=== PATIENT | male | born 1970 | race Two or more races ===

== ENCOUNTER 2017-08-08 07:49 | Outpatient (CLI) | payer OTHER ==
[~2017-08-08 07:49] MED LIST: BENADRYL50 MG; CIPRO750 MG; IBUPROFEN800 MG PO; MEDROL4 MG; ORPH100T PO; ZYRTEC10 MG
== END 2017-08-08 08:22 | disposition home or self-care (01) ==
LOC: RAD 07:49 → MAMO-SONO 08:15 → RAD 08:22
DX: M75.41 Impingement syndrome of right shoulder (principal); M75.42 Impingement syndrome of left shoulder

== ENCOUNTER 2021-02-03 11:40 | Outpatient (CLI) | payer OTHER | END 2021-02-03 12:02 | disposition home or self-care (01) | LOC: RAD 11:40 | PROVIDERS: ATTEND Physical Medicine & Rehabilitation Hospice and Palliative Medicine | DX: M25.511 Pain in right shoulder (principal); M75.51 Bursitis of right shoulder ==